=== PATIENT | male | born 1950 | race Caucasian/White ===

== ENCOUNTER 2025-04-16 13:44 | Inpatient (IN) | payer MEDICARE ==
[~2025-04-16] VITALS: Ht 175.3 cm; Wt 75.7 kg
[2025-04-16] MEDS ORDERED: TEMAZEPAM 7.5 MG CAPSULE PO PRN (16:00)
[2025-04-16] MEDS ORDERED: MAGNESIUM HYDROXIDE 30 ML UDC PO PRN (16:00)
[2025-04-16] MEDS ORDERED: MAG HYDROX/AL HYDROX/SIMETH 30 ML UDC PO PRN (16:00)
[2025-04-16] MEDS ORDERED: LORAZEPAM 0.5 MG TABLET PO PRN (16:00)
[2025-04-16 16:39] VITALS: BP 144/75; TEMP 98.6; O2SAT 97
[2025-04-16] MEDS ORDERED: LAMO25TA10 PO (17:35)
[2025-04-16] MEDS ORDERED: FOLI0.4T6 PO (17:35)
[2025-04-16] MEDS ORDERED: ACET325T53 PO (17:35)
[2025-04-16] MEDS ORDERED: TACR1CAP7 PO (17:35)
[2025-04-16] MEDS ORDERED: METO-357 PO (17:35)
[2025-04-16] MEDS ORDERED: PANT40TA49 PO (17:35)
[2025-04-16] MEDS ORDERED: NALT50TA PO (17:35)
[2025-04-16] MEDS ORDERED: MULT-594 PO (17:35)
[2025-04-16] MEDS ORDERED: ALLO100T PO (17:35)
[2025-04-16] MEDS ORDERED: MELA3TAB41 PO (17:35)
[2025-04-16] MEDS ORDERED: THIA100T74 PO (17:35)
[2025-04-16] MEDS: BLOOD SUGAR DIAGNOSTIC 1 EACH STRIP IN ONE (17:41)
[2025-04-16 20:00] VITALS: BP 123/83; TEMP 98.2; O2SAT 99
[2025-04-17 07:20] LABS: LDL 56 mg/dL (0-99)
[2025-04-17 07:22] LABS: ASPARTATE AMINOTRANSFERASE 16.0 U/L (15-37); CALCIUM, SERUM 9.2 mg/dL (8.5-10.1); CREATININE 1.0 mg/dL (0.6-1.3); SODIUM SERUM 137.0 mmol/L (136-145); TOTAL PROTEIN, SERUM 6.9 g/dL (6.4-8.2); UREA NITROGEN, BLOOD 22.0 mg/dL (7-18)
[2025-04-17 08:00] VITALS: BP 138/84; TEMP 97.8; O2SAT 97
[2025-04-17] MEDS: SERTRALINE HCL 25 MG TABLET PO SCH (12:23)
[2025-04-17 15:54] LABS: CREATININE 1.0 mg/dL (0.6-1.3)
[2025-04-17 16:00] VITALS: BP 121/65; TEMP 98.8; O2SAT 97
[2025-04-17] MEDS: TACROLIMUS ANHYDROUS 0.5 MG CAPSULE PO SCH (16:44)
[2025-04-17 20:00] VITALS: BP 127/74; TEMP 98; O2SAT 99
[2025-04-18 08:00] VITALS: BP 146/90; TEMP 97.7; O2SAT 99
[2025-04-18] MEDS: PANTOPRAZOLE 40 MG TABLET.DR PO SCH (08:31)
[2025-04-18] MEDS: ALLOPURINOL 100 MG TABLET PO SCH (08:31)
[2025-04-18] MEDS: THIAMINE HCL 100 MG TABLET PO SCH (08:31)
[2025-04-18] MEDS: MULTIVITAMINS,THERAGRAN 1 UDTAB TABLET PO SCH (08:31)
[2025-04-18] MEDS: METOPROLOL SUCCINATE 50 MG TAB.SR.24H PO SCH (08:32)
[2025-04-18] MEDS: FOLIC ACID 1 MG TABLET PO SCH (08:32)
[2025-04-18] MEDS: SERTRALINE HCL 25 MG TABLET PO SCH (12:31)
[2025-04-18 16:00] VITALS: BP 127/54; TEMP 97.5; O2SAT 95
[2025-04-18 20:00] VITALS: BP 122/75; TEMP 98.2; O2SAT 98
[2025-04-19 08:00] VITALS: BP 137/80; TEMP 99; O2SAT 98
[2025-04-19 16:00] VITALS: BP 131/88; TEMP 98.8; O2SAT 97
[2025-04-19 20:18] VITALS: BP 120/76; TEMP 98.4; O2SAT 100
[2025-04-19] MEDS: ACETAMINOPHEN 325 MG TABLET PO PRN (23:17)
[2025-04-20 07:50] VITALS: BP 141/75; TEMP 98.7; O2SAT 100
[2025-04-20 16:03] VITALS: BP 115/76; TEMP 98.6; O2SAT 99
[2025-04-20 21:03] VITALS: BP 128/78; TEMP 98.3; O2SAT 98
[2025-04-20] MEDS: LORAZEPAM 0.5 MG TABLET PO PRN (23:34)
[2025-04-21 07:48] VITALS: BP 133/77; TEMP 98.6; O2SAT 98
[2025-04-21 15:02] VITALS: BP 125/79; TEMP 97.5; O2SAT 99
[2025-04-21 19:39] VITALS: BP 134/70; TEMP 97.5; O2SAT 100
[2025-04-21] MEDS: TEMAZEPAM 7.5 MG CAPSULE PO PRN (20:56)
[2025-04-22 08:00] VITALS: BP 142/77; TEMP 97.8; O2SAT 96
[2025-04-22 16:47] VITALS: BP 112/65; TEMP 97.7; O2SAT 98
[2025-04-22 20:00] VITALS: BP 114/80; TEMP 97.9; O2SAT 97
[2025-04-23 08:10] VITALS: BP 147/87; TEMP 97.9; O2SAT 99
[2025-04-23 16:00] VITALS: BP 142/83; TEMP 98.8; O2SAT 99
[2025-04-23 19:58] VITALS: BP 139/85; TEMP 98.6; O2SAT 100
[2025-04-24 08:00] VITALS: BP 131/77; TEMP 97.9; O2SAT 100
[2025-04-24 16:00] VITALS: BP 113/71; TEMP 98.8; O2SAT 98
[2025-04-24 20:00] VITALS: BP 127/75; TEMP 97.8; O2SAT 98
[2025-04-25 08:00] VITALS: BP 130/68; TEMP 97.9; O2SAT 99
[2025-04-25 16:05] VITALS: BP 108/70; TEMP 97.7; O2SAT 98
== END 2025-04-25 17:27 | DRG 885 ==
LOC: ER 13:48 → GPS 15:13
PROVIDERS: ADMIT Psychiatry & Neurology Psychosomatic Medicine
DX: F33.2 Major depressive disorder, recurrent severe without psychotic features (principal); Z94.4 Liver transplant status; Z94.0 Kidney transplant status; R45.851 Suicidal ideations; F03.93 Unspecified dementia, unspecified severity, with mood disturbance; I48.91 Unspecified atrial fibrillation; G40.909 Epilepsy, unspecified, not intractable, without status epilepticus; I48.0 Paroxysmal atrial fibrillation; Z85.05 Personal history of malignant neoplasm of liver; Z20.822 Contact with and (suspected) exposure to COVID-19; Z86.19 Personal history of other infectious and parasitic diseases; F10.90 Alcohol use, unspecified, uncomplicated; Z91.81 History of falling; Z79.621 Long term (current) use of calcineurin inhibitor; Z79.899 Other long term (current) drug therapy
CPT/HCPCS: 36415; 71045-TC; 80053-TC; 80061-TC; 82565-TC; 82962-TC; 87081-TC; J7507